=== PATIENT | female | born 1950 | race Caucasian/White ===

== ENCOUNTER 2019-10-24 14:04 | Observation (INO) ==
[~2019-10-24 14:04] MED LIST: Total Joint Mixture (50 ml) IR ONE
[2019-10-24] MEDS ORDERED: Albuterol 2.5 MG/3 ML NEBULIZER IH PRN (14:24)
[2019-10-24] MEDS ORDERED: CeFAZolin Syr 2,000MG/20 ML 2,000 MG/20 ML SYRINGE IVPB ONE (14:24)
[2019-10-24] MEDS ORDERED: Ringers Solution, Lactated 1,000 ML IVC SCH ×2 (14:30→23:10)
[2019-10-24] MEDS ORDERED: *HR* Promethazine 25 MG/ML VIAL IVP PRN ×2 (15:00→23:10)
[2019-10-24] MEDS ORDERED: *HR* OxyCODONE Immed Rel 5 MG TABLET PO PRN (15:00)
[2019-10-24] MEDS ORDERED: Acetaminophen IV 1,000 MG/100 ML INFUS..BTL IVPB ONE (15:00)
[2019-10-24] MEDS ORDERED: *HR* Meperidine 25 MG/ML SYRINGE IVP PRN (15:00)
[2019-10-24] MEDS ORDERED: *HR* HYDROmorphone PF 0.5 MG/0.5 ML SYRINGE IVP PRN (15:00)
[2019-10-24] MEDS ORDERED: Ondansetron 4 MG/2 ML VIAL IVP ONE (15:00)
[2019-10-24] MEDS ORDERED: *HR* Midazolam HCl 2 MG/2 ML VIAL ONE ×3 (19:03→20:20)
[2019-10-24] MEDS ORDERED: *HR* FentaNYL (PF) 100 MCG/2 ML VIAL ONE ×2 (19:04→19:20)
[2019-10-24] MEDS ORDERED: ROPIVACAINE/PF/NS 0.25% 1 EACH SYRINGE INTRAART ONE (19:04)
[2019-10-24] MEDS ORDERED: *HR* Propofol 200 MG/20 ML VIAL IVP ONE ×2 (19:20→19:51)
[2019-10-24] MEDS ORDERED: Lidocaine -MPF 2% 2 ML VIAL ONE (19:52)
[2019-10-24] MEDS ORDERED: Ethanol\\Acetic Acid\\Na Ace\\Ben 1,000 ML IRRIG.SOLN IR ONE (20:02)
[2019-10-24 21:46] LABS: Hematocrit 33.3 % (35.3-44.9); Hemoglobin 10.5 g/dL (11.5-15.4)
[2019-10-24] MEDS ORDERED: D5% in Water 1,000 ML IVC PRN (23:10)
[2019-10-24] MEDS ORDERED: MOM Conc 10 ML UD.LIQ PO PRN (23:10)
[2019-10-24] MEDS ORDERED: Naloxone 0.4 MG/ML INJ IVP PRN (23:10)
[2019-10-24] MEDS ORDERED: Sennosides 8.6 MG TABLET PO PRN (23:10)
[2019-10-24] MEDS ORDERED: Dextrose Gel 15 GM/37.5 ML TUBE PO PRN ×2 (23:10)
[2019-10-24] MEDS ORDERED: *HR* Dextrose 50 % in Water (Syg) 50 ML SYRINGE IVP PRN (23:10)
[2019-10-24] MEDS: Insulin LISPRO 300 UNITS/3 ML VIAL SQ SCH (23:36)
[2019-10-24] MEDS: (Pravastatin Sodium [Pravachol] 80 MG) PO SCH (23:43)
[2019-10-24] MEDS: (Ezetimibe 10 MG) PO SCH (23:43)
[2019-10-25] MEDS: *HR* OxyCODONE Immed Rel 5 MG TABLET PO PRN ×2 (00:08→15:28)
[2019-10-25] MEDS: ceFAZolin 2,000 MG in 0.9 % Sodium Chloride 100 ML IVPB SCH ×2 (01:19→08:26)
[2019-10-25] MEDS: HYDROcodone BIT/Homatropine 5 MG TABLET PO PRN ×3 (01:22→18:35)
[2019-10-25] MEDS: Ondansetron 4 MG/2 ML VIAL IVP PRN (01:29)
[2019-10-25 03:10] LABS: Basophils % 0.1 %; Eosinophils # 0.1 K/mcL (0.0-0.6); Eosinophils % 0.6 %; Hemoglobin 9.8 g/dL (11.5-15.4); Immature Granulocytes % 0.6 % (0-4); Lymphocytes # 1.3 K/mcL (0.6-4.6); Lymphocytes % 15.9 %; Mean Corpuscular HGB Conc 31.6 g/dL (31.6-35.5); Mean Corpuscular Hemoglobin 29.9 pg (28.0-33.3); Mean Corpuscular Volume 94.5 fL (83.0-100.0); Mean Platelet Volume 10.1 fL (9.4-12.4); Monocytes # 0.8 K/mcL (0.0-1.3); Monocytes % 9.4 %; Platelet Count 185 K/mcL (140-400); Red Blood Count 3.28 M/mcL (3.82-4.97); Red Cell Distribution Width 12.5 % (11.5-14.5); Segmented Neutrophils % 73.4 %; White Blood Count 8.1 K/mcL (4.3-11.1)
[2019-10-25 03:31] LABS: BUN/Creatinine Ratio 23 (6-26); Blood Urea Nitrogen 16 mg/dL (8-23); Calcium 8.3 mg/dL (8.6-10.3); Carbon Dioxide 27 mEq/L (23-29); Chloride 106 mEq/L (98-107); Glucose 110 mg/dL (70-105); Osmolality,Calculated 288 (280-300); Potassium 3.3 mEq/L (3.5-5.1); Sodium 138 mEq/L (136-145); eGFR For African Americans > 60 (> 60); eGFR For Non-African Americans > 60 (> 60)
[2019-10-25] MEDS: Budesonide/Formoterol 160/4.5 1 PUFF INH IH SCH ×2 (07:43→19:49)
[2019-10-25] MEDS: Insulin LISPRO 300 UNITS/3 ML VIAL SQ SCH ×4 (08:17→21:19)
[2019-10-25] MEDS: Ascorbic Acid 500 MG TABLET PO SCH ×3 (08:21→18:35)
[2019-10-25] MEDS: Cholecalciferol (D-3) 1,000 UNIT (25MCG) TABLET PO SCH (08:25)
[2019-10-25] MEDS: Metoprolol XL (24 HR) Succ 50 MG TAB.ER.24H PO SCH (08:25)
[2019-10-25] MEDS: Multivit/Ca/Min/Fe/FA 1 TAB TABLET PO SCH (08:26)
[2019-10-25] MEDS: Cyanocobalamin (B-12) 1,000 MCG TABLET PO SCH (08:26)
[2019-10-25] MEDS: tiZANidine 4 MG TABLET PO SCH ×2 (15:28→20:04)
[2019-10-25] MEDS: Aspirin Enteric Coated 81 MG Tablet PO SCH (19:12)
[2019-10-25] MEDS: (Ezetimibe 10 MG) PO SCH (19:12)
[2019-10-25] MEDS: (Pravastatin Sodium [Pravachol] 80 MG) PO SCH (20:05)
[2019-10-26 01:03] LABS: Basophils % 0.2 %; Eosinophils # 0.1 K/mcL (0.0-0.6); Eosinophils % 0.9 %; Hematocrit 28.1 % (35.3-44.9); Hemoglobin 9.2 g/dL (11.5-15.4); Immature Granulocytes % 0.4 % (0-4); Lymphocytes # 1.1 K/mcL (0.6-4.6); Lymphocytes % 13.4 %; Mean Corpuscular HGB Conc 32.7 g/dL (31.6-35.5); Mean Corpuscular Hemoglobin 30.4 pg (28.0-33.3); Mean Corpuscular Volume 92.7 fL (83.0-100.0); Monocytes % 12.3 %; Neutrophils # 6.2 K/mcL (1.6-8.9); Platelet Count 160 K/mcL (140-400); Red Blood Count 3.03 M/mcL (3.82-4.97); Red Cell Distribution Width 12.6 % (11.5-14.5); Segmented Neutrophils % 72.8 %; White Blood Count 8.5 K/mcL (4.3-11.1)
[2019-10-26 01:27] LABS: BUN/Creatinine Ratio 25 (6-26); Blood Urea Nitrogen 16 mg/dL (8-23); Calcium 8.3 mg/dL (8.6-10.3); Carbon Dioxide 27 mEq/L (23-29); Chloride 104 mEq/L (98-107); Glucose 121 mg/dL (70-105); Osmolality,Calculated 282 (280-300); Potassium 3.3 mEq/L (3.5-5.1); Sodium 135 mEq/L (136-145); eGFR For African Americans > 60 (> 60); eGFR For Non-African Americans > 60 (> 60)
[2019-10-26 06:48] VITALS: BP 132/79
[2019-10-26] MEDS: Aspirin Enteric Coated 81 MG Tablet PO SCH (07:43)
[2019-10-26] MEDS: tiZANidine 4 MG TABLET PO SCH (07:43)
[2019-10-26] MEDS: Ondansetron 4 MG/2 ML VIAL IVP PRN (07:43)
[2019-10-26] MEDS: Cyanocobalamin (B-12) 1,000 MCG TABLET PO SCH (07:44)
[2019-10-26] MEDS: Multivit/Ca/Min/Fe/FA 1 TAB TABLET PO SCH (07:44)
[2019-10-26] MEDS: Ascorbic Acid 500 MG TABLET PO SCH (07:44)
[2019-10-26] MEDS: Metoprolol XL (24 HR) Succ 50 MG TAB.ER.24H PO SCH (07:44)
[2019-10-26] MEDS: *HR* OxyCODONE Immed Rel 5 MG TABLET PO PRN (07:44)
[2019-10-26] MEDS: Cholecalciferol (D-3) 1,000 UNIT (25MCG) TABLET PO SCH (07:56)
[2019-10-26] MEDS: Insulin LISPRO 300 UNITS/3 ML VIAL SQ SCH (08:06)
[2019-10-26] MEDS: Budesonide/Formoterol 160/4.5 1 PUFF INH IH SCH (10:52)
== END 2019-10-26 11:15 | disposition home health service (06) ==
LOC: 3NENU 14:04 → SAMDAY 14:04 → 3NENU 23:03
PROVIDERS: ADMIT Orthopaedic Surgery; ATTEND Orthopaedic Surgery